=== PATIENT | female | born 1975 | race Caucasian/White ===

== ENCOUNTER 2025-06-19 12:49 | Emergency (ER) | payer BC, SELFPAY ==
[2025-06-19 12:57] VITALS: BP 133/85
[2025-06-19 13:03] LABS: Glucose - Point of Care 584 mg/dl (70-99)
[2025-06-19 13:18] VITALS: BP 114/73
--- NOTE | 2025-06-19 13:22 | ED.GENMED ---
History of Present Illness
General
Chief Complaint: Blood Sugar Problem
Source: patient
Exam Limitations: none
Time Seen by Provider: 06/19/25 13:13
History of Present Illness
History of Present Illness:
50yoF with a history of hypertension, obesity, anxiety, and depression presenting for evaluation of elevated blood sugar. Patient has been experiencing increased thirst and urinary incontinence over the past week or so. She is also reports fatigue
and muscle cramping for several weeks. She was seen by her PCP today due to her symptoms. Urinalysis was obtained which showed a large amount of glucose and she was sent to the ED for evaluation. She denies any abdominal pain or fevers. She has
never been diagnosed with diabetes before.
Past History
Past History
ED Past Medical History: None
ED Past Surgical History: Gynecological
Social History
Tobacco: Non-smoker
Phy Exam
General Physical Exam
General Presentation: well appearing and no apparent distress
General Skin: warm and dry
General Habitus: normal
General Mental: alert
ENT Exam
ENT Exam: normocephalic
Cardiovascular Exam
Cardiovascular Exam: regular rate/rhythm
Pulmonary Exam
Pulmonary Exam: lungs clear, no respiratory distress, no rales, no crackles, no rhonchi and no wheezing
Neurological Exam
Neurological Exam: alert
[place] Coma Scale
Eye Opening: Spontaneous
Verbal Response: Oriented
Motor Response: Obeys Commands
GCS Total Score: 15
Skin Exam
Skin Exam: normal color and warm/dry
Psychiatric Exam
Psychiatric Exam: normal mood/affect
Course
Orders/Labs/Results
Orders:
Orders
06/19/25 13:19
Cardiac Monitoring- Treatment ONCE
0.9% Sodium Chloride 1000 ml [Nss] 1,000 ml IV BOLUS
06/19/25 13:23
B-Hydroxybutyrate Urgent
Complete Blood Count/With Diff Urgent
Comprehensive Metabolic Panel Urgent
Hemoglobin A1c [Glycohemoglobin (HgbA1c)] Urgent
Magnesium Urgent
Venous Blood Gas Urgent
%Oxygen/Room Air: room air
06/19/25 13:58
Urinalysis Reflex To Culture Urgent
Date Specimen was Collected: 06/19/25
Time Specimen was Collected: 13:57
Urine Microscopic Reflex Cult Urgent
Urine Culture Urgent
RODRÍGUEZ Source: U
Specimen Description:
Date Specimen was Collected: 06/19/25
Time Specimen was Collected: 13:57
06/19/25 14:08
0.9% Sodium Chloride 1000 ml [Nss] 1,000 ml IV BOLUS
Insulin Human Regular [Novolin R] 5 units IV NOW STA
06/19/25 14:09
Bedside Glucose- Treatment Q1H
06/19/25 14:30
Diabetes Education Consult Routine
Reason for Consult: Monitor Instruction
Newly Diagnosed?: Yes
06/19/25 14:34
Diabetes Management by Nurse Practitioner Urgent
Consulting Provider: Audrey Fletcher
Was provider already notified?: Yes
06/19/25 15:15
Glucose Stat
06/19/25 15:59
Bedside Glucose Monitoring As Directed
Frequency: AC&HS
06/19/25 17:00
GlipiZIDE [Glucotrol] 2.5 mg PO BID@0800,1700
METFORMIN HCl [Glucophage] 500 mg PO BID@0800,1700
06/19/25 22:00
Insulin Glargine Lantus [Lantus] 15 units Subcutaneous Insulin Syringe [Syringe-Insulin] 0 unit SC HS
Abnormal Lab Results
06/19/25 06/19/25 06/19/25
13:01 13:23 13:58
WBC 11.1 H 10^3/uL
(4.8-10.8)
Abs Immat Gran (auto) 0.1 H 10^3/uL
(0-0.05)
Absolute Neuts (auto) 8.5 H 10^3/uL
(1.4-6.5)
Absolute Monos (auto) 0.8 H 10^3/uL
(0.1-0.6)
Neutrophils % 76.4 H %
(42.2-75.2)
Lymphocytes % 13.2 L %
(20.5-51.1)
VBG pO2 96 H mmHg
(30-50)
Sodium 128 L mmol/L
(135-145)
Chloride 95 L mmol/L
(98-107)
Creatinine 0.5 L mg/dL
(0.6-1.0)
Glucose 662 H* mg/dl
(70-99)
Hemoglobin A1c 10.3 H %
(4.0-5.6)
AST 38 H U/L
(14-36)
ALT 66 H U/L
(0-35)
Alkaline Phosphatase 151 H U/L
(38-126)
Ur Occult Blood Reflex 2+ A
(Negative)
Leukocyte Esterase Rfl 3+ A
(Negative)
Urine RBC 3-6 A /HPF
(0-2)
Urine WBC (Reflex) 50-60 A /HPF
(0-5)
Urine Bacteria (Reflex) Few A
(Negative)
Urine Yeast Few A
(Negative)
Urine Glucose 4+ A
(Negative)
Urine Albumin (Reflex) 1+ A
(Neg - Trace)
POC Glucose 584 H* mg/dl
(70-99)
06/19/25 06/19/25
15:09 15:15
WBC
Abs Immat Gran (auto)
Absolute Neuts (auto)
Absolute Monos (auto)
Neutrophils %
Lymphocytes %
VBG pO2
Sodium
Chloride
Creatinine
Glucose 452 H* mg/dl
(70-99)
Hemoglobin A1c
AST
ALT
Alkaline Phosphatase
Ur Occult Blood Reflex
Leukocyte Esterase Rfl
Urine RBC
Urine WBC (Reflex)
Urine Bacteria (Reflex)
Urine Yeast
Urine Glucose
Urine Albumin (Reflex)
POC Glucose 440 H mg/dl
(70-99)
06/19/25 13:23
06/19/25 15:15
Vital Signs
Initial and Last Documented VS:
Initial Vital Signs
Temp Pulse Resp BP Pulse Ox
98.4 F 100 18 133/85 100
06/19/25 12:57 06/19/25 12:57 06/19/25 12:57 06/19/25 12:57 06/19/25 12:57
Last Documented Vital Signs
Temp Pulse Resp BP Pulse Ox
98.4 F 82 18 122/81 99
06/19/25 12:57 06/19/25 16:08 06/19/25 16:08 06/19/25 16:08 06/19/25 16:08
MDM/Problems Addressed
Differential Diagnosis Includes:
50yoF here for elevated blood sugar. C/o polydipsia, polyuria, fatigue, muscle cramps. No history of diabetes. Fingerstick glucose 584 on arrival. VSS. She is well appearing in no distress. Differential diagnosis includes but is not limited to: new
onset diabetes, DKA, HHS
Initial ED plan: Check CBC, CMP, magnesium, VBG, beta hydroxybutyrate, HbA1c, and UA. IV fluid bolus.
*Pulse Oximetry
SaO2: 100
Oxygen Mode of Delivery: Room air
Patient hypoxic: no (100%)
*Critical Care Note
Total Time (30-74mins, 75-104mins- exclusive of procedures): Not Applicable
Update Note
Update Note:
Labs reveal a glucose of 662. Bicarb and venous pH normal. Serum and urine ketones negative. No evidence of DKA. A1c 10.3%. 50-60 WBC noted on UA. Patient given 2L NS and 5 units IV regular insulin with improvement of glucose of 452. Patient was
evaluated by diabetic CHEMIST HELPER and educator. She was initiated on Lantus 15 units QHS, metformin BID, and glipizide BID. Education provided on fingerstick glucose checks. Patient stable for discharge. Prescription for cefdinir sent to pharmacy to cover
for UTI. Advised close f/u with diabetic CHEMIST HELPER and PCP. ED return precautions reviewed. Patient in agreement with plan and feels significantly improved since arrival to the ED.
ED Attending Note
-
Portions of this chart may have been created with voice recognition software.� Occasional wrong word or��sound alike� substitutions may have occurred due to the inherent limitations of voice recognition software.
Discharge Plan
Departure
Patient Disposition: Home (Routine Discharge)
Date of Disposition: 06/19/25
Time of Disposition: 15:55
Patient with high blood pressure during this ER visit?: No
Discharge Problem:
Diabetes mellitus, new onset, Urinary tract infection
Instructions: Diabetes and diet, Checking your blood sugar at home
Prescriptions:
New
(DME) Contour Next Test Strips Strip
Qty: 100 0RF
Rx Instructions:
Pt Testing 4 times a day
(DME) lancets [Microlet Lancet] Misc
Qty: 100 0RF
Rx Instructions:
Pt testing 4 times a day
insulin glargine 100 unit/mL (3 mL) Insulin Pen
15 unit SC DAILY Qty: 5 0RF
Rx Instructions:
Take Daily at bedtime
(DME) pen needle, diabetic [Hilaria 2nd Gen Pen Needle] 32 gauge x 5/32' Needle
Qty: 200 0RF
Rx Instructions:
Lantus 15 units daily at bedtime
glipizide 2.5 mg Tablet Extended Release 24hr
2.5 mg PO BID Qty: 60 0RF
Rx Instructions:
TAKE TWICE A DAY WITH BREAKFAST AND DINNER
metformin 500 mg Tablet
500 mg PO BIDWMEAL Qty: 60 0RF
Rx Instructions:
TAKE TWICE A DAY WITH BREAKFAST AND DINNER
cefdinir 300 mg capsule
300 mg PO BID Qty: 14 0RF
No Action
lisinopril 10 mg tablet
10 mg PO DAILY
paroxetine HCl 37.5 mg tablet extended release 24 hr
37.5 mg PO DAILY
psyllium seed (sugar) Powder
1 tbsp PO DAILY
Vraylar 1.5 mg Capsule
1.5 mg PO DAILY
Referrals:
Richy Gutiérrez MD [Family Provider, Family Practice]
Audrey Fletcher CRNP [Specified Professional Personl, Internal Medicine]
Activity Restrictions/Additional Instructions:
Check your blood sugars 4 times daily. Take diabetic medications as prescribed. A prescription for an antibiotic was also sent to the pharmacy to cover for a urinary tract infection.
Please follow-up with your family doctor and the booking clerk. Return to the ER with any new or worsening symptoms.
Interventions
Interventions:
*Risk Screen - Suicide Last Done: 06/19/25 13:00
*General Assessment Last Done: 06/19/25 12:57
*Neglect/Abuse Screening Last Done: 06/19/25 12:57
*ED- Fall Risk Assessment Last Done: 06/19/25 14:30
*ED COVID-19 Vaccine History Last Done: 06/19/25 14:30
*Nursing Disposition Last Done: 06/19/25 16:12
ED- Neurological Assessment Last Done: 06/19/25 13:43
Discharge Date and Time
Discharge Date/Time: 06/19/25 16:13
Print Language: OCCITAN
[2025-06-19] MEDS: NSS 1000 IV ×2 (13:25→14:19)
[2025-06-19 13:37] LABS: Venous Blood Gas B.E. -0.2 mmol/L (-4 to +4); Venous Blood Gas O2 Sat % 99.3 %
[2025-06-19 13:39] LABS: Hematocrit 43.4 % (37.0-47.0); Hemoglobin 14.5 g/dL (12.0-16.0); Mean Corp Hgb Conc. 33.4 g/dL (33.0-37.0); Mean Corpuscular Volume 89.5 fL (81.0-99.0); Nucleated Red Blood Cells % 0 %; Platelet Count 275 10^3/uL (130-400); Red Cell Dist. Width 13.6 % (11.5-14.5)
[2025-06-19 14:09] LABS: ALT (SGPT) 66 U/L (0-35); AST (SGOT) 38 U/L (14-36); Albumin 3.9 g/dl (3.5-5.0); Alkaline Phosphatase 151 U/L (38-126); Blood Urea Nitrogen 9 mg/dl (7-17); Calcium 9.7 mg/dl (8.4-10.2); Carbon Dioxide 24 mmol/L (22-30); Chloride 95 mmol/L (98-107); Glucose 662 mg/dl (70-99); Magnesium 1.8 mg/dl (1.6-2.3); Potassium 4.3 mmol/L (3.5-5.1); Sodium 128 mmol/L (135-145); Total Protein 7.1 g/dl (6.3-8.2); eGFR > 60.00
[2025-06-19 14:16] LABS: Glycohemoglobin (HgbA1c) 10.3 % (4.0-5.6)
[2025-06-19] MEDS: NOVOLIN R 5 UNITS IV (14:17)
[2025-06-19 14:28] LABS: Urine Character Clear (Clear)
[2025-06-19 14:29] VITALS: BMI 39.8
[2025-06-19 14:53] LABS: Urine White Cell 50-60 /HPF (0-5)
[2025-06-19 15:10] VITALS: BP 116/67
[2025-06-19 15:11] LABS: Glucose - Point of Care 440 mg/dl (70-99)
--- NOTE | 2025-06-19 15:24 | PN.DE.MGMTRT ---
Insulin Management
- -
06/19/2025: Diabetes Management Consult
50 year old Female with a PMH: HTN, Obesity, Anxiety, and Depression presenting for evaluation of elevated blood sugar. Patient has been experiencing increased thirst and urinary incontinence over the past week or so. She is also noticed fatigue
and muscle cramping for several weeks. She was seen by her PCP today due to her symptoms. Urinalysis was obtained which showed a large amount of glucose and she was sent to the ED for evaluation. She has never been diagnosed with diabetes before.
Glucose on admission was 662, A1C 10.3%, Cr 0.5, eGFR >60.
Received 5 units of aspart, repeat POC glucose had trended down to 440.
Will start Lantus 15 units @ HS, Glipizide 2.5mg BID and Metformin 500 mg BID 1st doses today.
Instructed pt to test glucose and keep a log, she will contact diabetes office on Monday to further discuss management and adjust meds if necessary.
Pt was seen by the Diabetes Nurse Educator for monitor and insulin instructions.
Diabetes History
- -
Type of Diabetes: 2 requiring insulin
Pre-Admission Diabetes Regimen
06/19/25
13:23
Creatinine 0.5 L
Lab Results
Hemoglobin A1c 10.3 % (4.0-5.6) H 06/19/25 13:23
Insulin Pump Settings
IP Diabetes Regimen
06/19/25 06/19/25 06/19/25
13:01 13:23 15:09
Glucose 662 H*
POC Glucose 584 H* 440 H
Patient Education
--- NOTE | 2025-06-19 15:39 | PTCARENOTE ---
06/19/2025 DIABETES EDUCATION CONSULT
I met with Julito to review diabetes management, she presented to the ED with elevated glucose. She was at her PCP to review her medication for anxiety, complained of incontinence and he checked her glucose. The meter read high, and she was sent
the ED. Her HbA1c is 10.3%.
We reviewed the signs and symptoms of hyperglycemia. She complained of recent frequent urination, decreased coffee to 1 c. per day which did not help.
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
She states she is under a great deal of stress, we reviewed that stress will increase glucose readings.
I reinforced signs of hypoglycemia and hypoglycemia protocol; BS parameters and recommended HbA1c goals. Provided her with a Contour Next Gen glucometer and written materials on CGM instructions, glucose tracker, medic alert bracelet and
outpatient DSME program.
I provided patient with a Contour Next Gen glucometer sample kit.
Discussed regular and long acting insulin; onset/peak/duration. She states she is familiar with all the medications prescribed (Metformin 500 mg BID and Glipizide 2.5 mg BID. Educated Julito to take Glipizde 30 minutes before meals as this
stimulates insulin secrettion. Discussed normal target glucose ranges and a monitoring schedule fasting, 15 minutes before each meal and at bedtime.
Encouraged patient to follow up with her PCP for post d/c appointment and to monitor medication and blood glucose levels. Provided list of endocrinologists if desired, to contact insurance company to verify in network status. Patient
verbalized understanding.
[2025-06-19 15:45] LABS: Glucose 452 mg/dl (70-99)
[2025-06-19 16:08] VITALS: BP 122/81
== END 2025-06-19 16:13 | disposition home or self-care (01) ==
LOC: EMR 12:49
PROVIDERS: Emergency Medicine; Physician Assistant; CONSULT PHYSICIAN Nurse Practitioner Acute Care; EMERGENCY PHYSICIAN Emergency Medicine; FAMILY PHYSICIAN Family Medicine
DX: E11.65 Type 2 diabetes mellitus with hyperglycemia (principal); N39.0 Urinary tract infection, site not specified
CPT/HCPCS: 96374; 96361; 99284; 80053; 81003; 81015; 82010; 82805; 82947; 82962; 83036; 83735; 85025; 87086